=== PATIENT | male | born 1960 | race Native Hawaiian/Other Pacific Islander ===

== ENCOUNTER 2018-06-10 06:45 | Day surgery (SDC) | payer MEDICARE, OTHER ==
[2018-06-10] MEDS ORDERED: Nitroglycerin 50mg in D5W 0 MG/0 ML BOTTLE IV ONE (08:40)
[2018-06-10] MEDS ORDERED: Verapamil 0 ML ONE (08:41)
[2018-06-10] MEDS ORDERED: Iodixanol 320 MG/ML 100 ML BOTTLE IV ONE (08:43)
[2018-06-10] MEDS ORDERED: Midazolam 2 MG/2 ML VIAL ONE (08:59)
[2018-06-10] MEDS ORDERED: Labetalol 5mg/ml (4ml) ONE (09:08)
[2018-06-10] MEDS ORDERED: Enalaprilat 2.5 MG/2 ML ONE (09:36)
[2018-06-10 10:02] VITALS: BMI 28.1
--- NOTE | 2018-06-10 18:39 | CARDCATH ---
PROCEDURE DATE: 06/10/2018 PROCEDURES: 1. Coronary angiogram. 2. Aortic root angiogram. REFERRING PHYSICIANS: 1. Bebeto Seth MD 2. Matthieu Aguilar MD PERFORMING PHYSICIAN: Alonso Garcia MD CLINICAL INDICATIONS: 1. Exertional dyspnea. 2. Severe aortic stenosis. 3. Hypertension. 4. Chronic renal failure, on hemodialysis. DESCRIPTION OF PROCEDURE: After informed consent, the patient was prepped and draped in the usual sterile fashion. A 2% lidocaine was given in the right groin for local anesthesia. Using micropuncture technique, 6-Scottish sheath was introduced into the right common femoral artery. JL4 diagnostic catheter engaged into the left main coronary artery. Contrast injected, and left coronary angiogram was done. The catheter was exchanged to a no-torque 6-Scottish diagnostic catheter. The catheter engaged into right coronary artery. Contrast injected, and right coronary angiogram was done. Then, pigtail catheter introduced into ascending aorta. Contrast injected using the power injector, and aortic root angiogram was done. The patient tolerated the procedure well. Post procedure, Mynx closure device deployed with excellent hemostasis. Radiological supervision and radiological interpretation of the coronary imaging was done. PROCEDURE FINDINGS: 1. Left main coronary artery is patent. 2. Left anterior descending coronary artery is patent. Diagonal 1 has a 90% proximal and mid stenosis. Diagonal 2 artery is patent. 3. Left circumflex and obtuse marginal branches are patent. 4. Right coronary artery is dominant and patent. 5. Aortic root angiogram is normal. No aneurysm, dissection, or coarctation noted. IMPRESSION: 1. Coronary artery disease as described above. 2. Medical management for diagonal disease for now. 3. Severe aortic stenosis by echocardiogram. PLAN: The patient will be referred for evaluation for aortic valve replacement. Alonso Garcia MD <> (Delete this signature block when dictator is a preceptor.) cc: MD Vanessa (Delete if not dictated.) [facility] # [id number]
--- NOTE | 2018-06-10 18:53 | CARD ---
APPROVED REPORT Date of service: 06/10/2018 EXAM: Two-dimensional and M-mode echocardiogram with Doppler and color Doppler. 2D DIMENSIONS IVSd1.7 (0.7-1.1cm)LVDd5.3 (3.9-5.9cm) LVOT Diameter2.0 (1.8-2.4cm)PWd1.5 (0.7-1.1cm) LA Ilvybi18 (18-58mL)LVDs4.0 (2.5-4.0cm) FS (%) 26.1 %LVEF (%)65.0 (>50%) LVEF (Luis's)62.20 %IVC0.00 cm M-Mode DIMENSIONS RVDd1.59 (2.1-3.2cm)Left Atrium (MM)4.19 (2.5-4.0cm) IVSd1.59 (0.7-1.1cm)Aortic Root2.73 (2.2-3.7cm) LVDd5.35 (4.0-5.6cm)Aortic Cusp Exc.0.75 (1.5-2.0cm) PWd1.62 (0.7-1.1cm)FS (%) 46 % LVDs2.88 (2.0-3.8cm)LVEF (%)77 (>50%) Aortic Valve AoV Peak Afsliumx948.4cm/sAoV VTI98.7cmAO Peak GR.71mmHg LVOT Peak Zapgykil632.4cm/sLVOT VTI26.04cmAO Mean GR.40mmHg DOUGLAS (VMAX)0.61gb3FRV (VTI)0.12es8PB P 1/2 Erhd452fl Mitral Valve MV E Hljlbexi48.7cm/sMV A Snutqpha247.5cm/sE/A ratio0.9 AXLP987.57 cm/s TDI Lateral E' Peak V5.32cm/sMedial E' Peak V4.09cm/sE/Lateral E'18.6 E/Medial E'24.1 Tricuspid Valve TR Peak Hqzdfkbo154dd/sTR Peak Gr.03wyLuADKM58viSe LEFT VENTRICLE The left ventricle is normal size. There is moderate concentric left ventricular hypertrophy. The Ejection Fraction is 65-70%. There is normal LV segmental wall motion. There is normal LV segmental wall motion. The left atrial pressure is mildly elevated. Transmitral Doppler flow pattern is Grade II-pseudonormal filling dynamics. RIGHT VENTRICLE The right ventricle is normal size. The right ventricular systolic function is normal. ATRIA The left atrium is mildly dilated. The right atrium size is normal. The interatrial septum is intact with no evidence for an atrial septal defect. AORTIC VALVE The aortic valve is trileaflet. The aortic valve is calcified and displays decreased opening. There is mild aortic regurgitation. There is severe valvular aortic stenosis. Calculated aortic valve area is 0.8 cm2 with maximum pressure gradient of 98 mmHg and mean pressure gradient of 48 mmHg. MITRAL VALVE The mitral valve is normal in structure. Mitral regurgitation is moderate. TRICUSPID VALVE The tricuspid valve is normal in structure. There is mild tricuspid regurgitation. Right ventricular systolic pressure is estimated at 38 mmHg. There is mild pulmonary hypertension. PULMONIC VALVE The pulmonary valve is normal in structure. GREAT VESSELS The aortic root is normal size. The aortic root displays mild sclerocalcific changes of the aortic root. The IVC is normal in size and collapses >50% with inspiration. PERICARDIAL EFFUSION There is no pericardial effusion. <Conclusion> The left ventricle is normal size. There is moderate concentric left ventricular hypertrophy. The Ejection Fraction is 65-70%. The left atrial pressure is mildly elevated. Transmitral Doppler flow pattern is Grade II-pseudonormal filling dynamics. The left atrium is mildly dilated. The aortic valve is trileaflet. The aortic valve is calcified and displays decreased opening. There is mild aortic regurgitation. There is severe valvular aortic stenosis. Calculated aortic valve area is 0.8 cm2 with maximum pressure gradient of 98 mmHg and mean pressure gradient of 48 mmHg. Mitral regurgitation is moderate. There is mild tricuspid regurgitation. Right ventricular systolic pressure is estimated at 38 mmHg. There is mild pulmonary hypertension. The aortic root is normal size. The aortic root displays mild sclerocalcific changes of the aortic root. There is no pericardial effusion.
== END 2018-06-10 14:10 | disposition home or self-care (01) ==
LOC: C.CATHLAB 06:45
PROVIDERS: ATTEND Internal Medicine Cardiovascular Disease
DX: I35.0 Nonrheumatic aortic (valve) stenosis (principal); I25.10 Atherosclerotic heart disease of native coronary artery without angina pectoris
CPT/HCPCS: 93306; 93458; 93567; 99152; 99153; C1760; C1769; C1887; C1893; J2250; J3010; Q9967